=== PATIENT | male | born 1980 | race African-American/Black ===

== ENCOUNTER 2018-11-22 06:07 | Emergency (ER) | payer OTHER ==
[2018-11-22] MEDS ORDERED: AMLODIPINE BESYLATE 5 MG TABLET PO ONE ×3 (06:36→11:05)
[2018-11-22] MEDS ORDERED: LABETALOL HCL INJ 20 MG/4 ML DISP.SYRIN IV ONE ×2 (06:36→08:25)
[2018-11-22 07:00] LABS: ABSOLUTE BASOPHILS # (AUTO) 0.1 10^3/uL (0.0-0.2); ABSOLUTE LYMPHOCYTES (AUTO) 1.8 10^3/uL (0.5-4.7); ABSOLUTE MONOCYTES (AUTO) 0.6 10^3/uL (0.1-1.4); BASOPHILS % (AUTO) 1.3 % (0-2); EOSINOPHILS % (AUTO) 0.1 % (0-6); HEMATOCRIT 44.8 % (37.9-51.0); HEMOGLOBIN 15.2 g/dL (13.5-17.0); LYMPHOCYTES % (AUTO) 40.2 % (13-45); MEAN CORPUSCULAR HEMOGLOBIN 29.3 pg (27.0-33.4); MEAN CORPUSCULAR HGB CONC 33.9 g/dL (32.0-36.0); MEAN CORPUSCULAR VOLUME 87 fl (80-97); MONOCYTES % (AUTO) 13.2 % (3-13); PLATELET COUNT 194 10^3/uL (150-450); RED BLOOD COUNT 5.18 10^6/uL (4.35-5.55); RED CELL DISTRIBUTION WIDTH 14.3 % (11.5-14.0); SEGMENTED NEUTROPHILS % (AUTO) 45.2 % (42-78); TOTAL CELLS COUNTED % (AUTO) 100 %; WHITE BLOOD COUNT 4.5 10^3/uL (4.0-10.5)
[2018-11-22 07:04] LABS: INTERNATIONAL RATION (INR) 0.86; PROTHROMBIN TIME 12.1 SEC (11.4-15.4)
--- NOTE | 2018-11-22 07:19 | RADIOLOGY REPORT (SQ) ---
EXAM DESCRIPTION: CT HEAD WITHOUT IV CONTRAST COMPLETED DATE/TME: 11/22/2018 06:31 CLINICAL HISTORY: numbness COMPARISON: None available TECHNIQUE: Axial CT of the head obtained from the skull apex to the skull base without contrast. FINDINGS: No acute intracranial hemorrhage identified. No mass, mass effect, shift of the midline, abnormal extra-axial fluid collection or CT evidence of acute ischemic change identified. The ventricular system is unremarkable. No acute abnormalities of the supratentorial white matter, basal ganglia, cerebellum, or brainstem. The visualized paranasal sinuses and the mastoids are clear. No skull fracture identified. Visualized orbits and globes are unremarkable. DLP:1230.00 mGy-cm IMPRESSION: 1. No acute intracranial abnormality identified. This exam was performed according to our departmental dose-optimization program, which includes automated exposure control, adjustment of the mA and/or kV according to patient size and/or use of iterative reconstruction technique.
[2018-11-22 07:20] LABS: ALANINE AMINOTRANSFERASE 31 U/L (21-72); ALBUMIN 4.8 g/dL (3.5-5.0); ALKALINE PHOSPHATASE 88 U/L (38-126); ANION GAP 10 (5-19); ASPARTATE AMINO TRANSFERASE 22 U/L (17-59); BILIRUBIN,DIRECT 0.2 mg/dL (0.0-0.4); BILIRUBIN,TOTAL 0.7 mg/dL (0.2-1.3); BLOOD UREA NITROGEN 18 mg/dL (7-20); CARBON DIOXIDE 27 mmol/L (22-30); CHLORIDE 107 mmol/L (98-107); CREATINE KINASE 131 U/L (55-170); GLUCOSE 101 mg/dL (75-110); POTASSIUM 4.3 mmol/L (3.6-5.0); SODIUM 143.6 mmol/L (137-145); TOTAL PROTEIN 7.6 g/dL (6.3-8.2)
--- NOTE | 2018-11-22 07:31 | RADIOLOGY REPORT (SQ) ---
EXAM DESCRIPTION: XR CHEST 1 VIEW COMPLETED DATE/TME: 11/22/2018 06:30 CLINICAL HISTORY: sob COMPARISON: None. FINDINGS: Single frontal view of the chest. Leads overlie the chest. The cardiomediastinal silhouette has normal size and contour. No consolidation, pneumothorax, or pleural effusion. No displaced rib fractures identified. Upper abdominal soft tissues are unremarkable. IMPRESSION: 1. No acute pulmonary process identified.
[2018-11-22 07:32] LABS: CREATINE KINASE MB 0.61 ng/mL (<4.55)
[2018-11-22 07:38] LABS: TROPONIN I < 0.012 ng/mL
--- NOTE | 2018-11-22 07:41 | EKG REPORT ---
SEVERITY:- ABNORMAL ECG - SINUS RHYTHM LEFT AXIS DEVIATION LEFT VENTRICULAR HYPERTROPHY : Confirmed by: Christopher Cristobal MD 22-Nov-2018 07:40:26
[2018-11-22 08:43] LABS: APPEARANCE,URINE CLEAR; BILIRUBIN,URINE NEGATIVE (NEGATIVE); COLOR,URINE YELLOW; GLUCOSE, URINE NEGATIVE (NEGATIVE); KETONES,URINE NEGATIVE (NEGATIVE); LEUKOCYTE ESTERASE,URINE NEGATIVE (NEGATIVE); NITRITE,URINE NEGATIVE (NEGATIVE); PROTEIN,URINE NEGATIVE (NEGATIVE); URINE SPECIFIC GRAVITY 1.024
[2018-11-22 08:57] LABS: URINE AMPHETAMINES SCREEN NEGATIVE; URINE BARBITURATES SCREEN NEGATIVE; URINE BENZODIAZEPINES SCREEN NEGATIVE; URINE COCAINE SCREEN NEGATIVE; URINE MARIJUANA (THC) SCREEN NEGATIVE; URINE METHADONE SCREEN NEGATIVE; URINE PHENCYCLIDINE SCREEN NEGATIVE
--- NOTE | 2018-11-22 11:11 | ER Document Report ---
ED General - General Chief Complaint: Chest Pain Stated Complaint: CHEST PAIN Time Seen by Provider: 11/22/18 06:30 TRAVEL OUTSIDE OF THE [place] IN LAST 30 DAYS: No - HPI Patient complains to provider of: Head pain chest pain arm pain Notes: Patient presents today with intermittent history over the last 3 weeks of head pain chest pain arm pain. Patient is left arm has become intermittently numbness and tingling. Patient states had pain throughout the day. Patient states today he decided to come in because he felt like his symptoms occurred this morning and worsening have been before. Patient does admit to a history of hypertension however states saw a primary care physician one time was placed on a medication never went to the pharmacy to fill it and therefore was never started on his blood pressure medication. Denies any fevers chills nausea vomiting diarrhea. Denies any recent head trauma or travel outside state or outside the country. - Related Data Allergies/Adverse Reactions: No Known Allergies Allergy (Unverified 11/22/18 07:05) Past Medical History - Social History Smoking Status: Current Every Day Smoker Frequency of alcohol use: Social Family History: Reviewed & Not Pertinent Patient has suicidal ideation: No Patient has homicidal ideation: No - Past Medical History Cardiac Medical History: Reports: Hx Hypertension Renal/ Medical History: Denies: Hx Peritoneal Dialysis Review of Systems - Review of Systems Constitutional: No symptoms reported EENT: No symptoms reported Cardiovascular: Chest pain - Headache arm pain Respiratory: No symptoms reported Gastrointestinal: No symptoms reported Genitourinary: No symptoms reported Male Genitourinary: No symptoms reported Musculoskeletal: No symptoms reported Skin: No symptoms reported Hematologic/Lymphatic: No symptoms reported Neurological/Psychological: No symptoms reported -: Yes All other systems reviewed and negative Physical Exam - Vital signs Vitals: Temp Pulse Resp BP Pulse Ox 99.4 F 87 22 H 236/157 H 98 11/22/18 06:13 11/22/18 06:13 11/22/18 06:13 11/22/18 06:13 11/22/18 06:13 Interpretation: Hypertensive - General General appearance: Appears well, Alert - HEENT Head: Normocephalic, Atraumatic Eyes: Normal Pupils: PERRL - Respiratory Respiratory status: No respiratory distress Chest status: Nontender Breath sounds: Normal Chest palpation: Normal - Cardiovascular Rhythm: Regular Heart sounds: Normal auscultation Murmur: No - Abdominal Inspection: Normal Distension: No distension Bowel sounds: Normal Tenderness: Nontender Organomegaly: No organomegaly - Back Back: Normal, Nontender - Extremities General upper extremity: Normal inspection, Nontender, Normal color, Normal ROM, Normal temperature General lower extremity: Normal inspection, Nontender, Normal color, Normal ROM, Normal temperature, Normal weight bearing. No: Aagta's sign - Neurological Neuro grossly intact: Yes Cognition: Normal Orientation: AAOx4 Laurier Coma Scale Eye Opening: Spontaneous Carlos Coma Scale Verbal: Oriented Carlos Coma Scale Motor: Obeys Commands Laurier Coma Scale Total: 15 Speech: Normal Motor strength normal: LUE, RUE, LLE, RLE Sensory: Normal - Psychological Associated symptoms: Normal affect, Normal mood - Skin Skin Temperature: Warm Skin Moisture: Dry Skin Color: Normal Course - Re-evaluation Re-evalutation: 11/22/18 13:44 Patient coming in for evaluation of chest pain arm pain in the setting of hype rtension. Symptoms improved after lowering of his blood pressure. Laboratory studies x2 along with a head CT chest x-ray EKGs not show any acute pathology. Patient had a long discussion with the need for further control of his blood pressure. Patient seemed to have good response with amlodipine given here in the ER. Will discharge patient home with amlodipine. - Vital Signs Vital signs: Temp Pulse Resp BP Pulse Ox 98.3 F 87 12 155/121 H 99 11/22/18 11:36 11/22/18 06:13 11/22/18 11:31 11/22/18 11:31 11/22/18 11:31 - Laboratory Result Diagrams: 11/22/18 06:40 11/22/18 06:40 Laboratory results interpreted by me: 11/22/18 11/22/18 06:40 08:15 RDW 14.3 H Monocytes % 13.2 H Urine Urobilinogen 2.0 H Discharge - Discharge Clinical Impression: Uncontrolled hypertension Condition: Good Disposition: HOME, SELF-CARE Instructions: Chest Pain of Unclear Cause ([facility]), Family Physicians / Practices, High Blood Pressure, Requiring Treatment ([facility]) Additional Instructions: Your evaluation is not show any signs of cardiac ischemia or any signs of infection. You will need to be placed on medications to help control your blood pressure. I highly recommend she follow-up with your primary care physician or physicians listed for further control of your blood pressure. Return to the ER if symptoms worsen. Take medications as prescribed. Prescriptions: Amlodipine Besylate [Norvasc 5 mg Tablet] 5 mg PO DAILY #30 tablet Forms: Elevated Blood Pressure, Return to Work
[2018-11-22 11:34] VITALS: BP 155/121
== END 2018-11-22 11:44 | disposition home or self-care (01) ==
LOC: ER 06:07
DX: I10 Essential (primary) hypertension (principal); R07.9 Chest pain, unspecified; R51 Headache; M79.602 Pain in left arm; R20.0 Anesthesia of skin; F17.200 Nicotine dependence, unspecified, uncomplicated
CPT/HCPCS: 93005; 99284; 96374; 36415; 82553; 82550; 83735; 85025; 85610; 80053; 81001; 84484; 80307; 71045; 70450; 93010; J3490